=== PATIENT | female | born 2000 | race Two or more races ===

== ENCOUNTER 2020-03-15 06:30 | Day surgery (SDC) | payer OTHER | END 2020-03-15 12:10 | disposition home or self-care (01) | LOC: AMB-ENDOS 06:30 → ADM 14:45 | PROVIDERS: ATTEND Surgery | DX: D13.2 Benign neoplasm of duodenum (principal); K63.5 Polyp of colon ==

== ENCOUNTER 2022-06-13 08:40 | Outpatient (CLI) | payer OTHER | END 2022-06-13 10:11 | disposition home or self-care (01) | LOC: SONOGRAMA 08:40 | DX: N92.6 Irregular menstruation, unspecified (principal) ==